=== PATIENT | female | born 1945 | race Caucasian/White ===

== ENCOUNTER → 2018-01-31 | Outpatient (CLI) | payer MEDICARE, OTHER ==
[~2018-01-31] MED LIST: CALC500T6 PO; CALCIUM; CHOL400C10 PO; IBUP-136 PO; PROBIOTIC1 EACH PO; RED600CA15 PO; VITAMIN D
--- NOTE | 2018-01-31 11:09 | RADIOLOGY IMAGING REPORT ---
FACILITY: [facility] [place] PATIENT NAME: Bhumika Wasserman : 1945 MR: [id number] V: [id number] EXAM DATE: ORDERING PHYSICIAN: AIME MCCOY TECHNOLOGIST: Location: [facility] [place] Patient: Bhumika Wasserman : 1945 Visit/Account:[id number] Date of Sevice: 01/31/2018 DEXA Scan Clinical history: Osteoporosis. Comparison: DEXA scan from 02/11/2015. LUMBAR SPINE: The bone mineral density (BMD) measured from L1-L4 correlates with a Z-score of -1.8 and a T-score of -3.4 which is osteoporosis as defined by the World Health Organization. The corresponding risk of f racture in the lumbar spine is 8-12 times increased compared with a young adult reference population. This value has decreased by 2.8 % since the prior study. More than 5% change is considered signifi cant. HIP: Bone mineral density (BMD) measured in the LEFT total hip region correlates with a Z-score -1.1 and a T-score of -2.6 which is osteoporosis as defined by the World Health Organization. The correspondin g risk of fracture in the hip is 6-8 times increased compared to a young adult reference population. This value has decrease by 1.2 % since the prior study. More than 5% change is considered significan t. T score left femoral neck -2.8 Bone mineral density (BMD) measured in the Femoral Neck region measures 0.653 g/cm?. IMPRESSION: 1. Lumbar spine: Osteoporosis. There has been 2.8% decrease in the bone mineral density since the p revious exam. 2. Left Total Hip: Osteoporosis. There has been 1.2% decrease in the bone mineral density since the previous exam. 3. Femoral Neck: Bone Mineral Density is 0.653 g/cm? The next DEXA scan of this patient should include the following sites: L1-L4 and the left hip. FRAX? WHO Fracture Risk Assessment Tool link: <http://www.shef.ac.uk/FRAX/tool.jsp?locationValue=9> PLEASE NOTE: 1) The World Health Organization defines low BMD as follows: T-score Normal > -1 Osteopenia < -1 and > -2.5 Osteoporosis < -2.5 without fractures Established osteoporosis < -2.5 with fractures 2) In general, you may wish to consider: Diagnosis Treatment Follow-up DEXA Normal BMD Prevention 2-3 years Osteopenia Prevention/therapy 1-2 years Osteoporosis Therapy Yearly 3) Fracture risk estimated from the T-score is more accurate for vertebral fractures (often spontane ous) than for hip fractures. Report Dictated By: Tory Garcia MD at 01/31/2018 11:01 AM Report E-Signed By: Tory Garcia MD at 01/31/2018 11:04 AM WSN:[email or web address]
== END ==
LOC: RAD 01:31
PROVIDERS: ATTEND Emergency Medicine
DX: M81.0 Age-related osteoporosis without current pathological fracture (principal)
CPT/HCPCS: 77080